=== PATIENT | male | born 1985 | race Caucasian/White ===

== ENCOUNTER 2021-04-12 08:16 | Emergency (ER) | payer SELFPAY ==
[2021-04-12 09:41] LABS: RED BLOOD COUNT 4.93 M/UL (4.20-5.50); WHITE BLOOD COUNT 9.9 K/UL (4.5-11.0)
[2021-04-12 10:05] LABS: BUN/CREATININE RATIO 11 (0-10)
== END 2021-04-12 13:36 | disposition home or self-care (01) ==
LOC: ER1 08:16
PROVIDERS: Physician Assistant
DX: N13.2 Hydronephrosis with renal and ureteral calculous obstruction (principal); F17.200 Nicotine dependence, unspecified, uncomplicated
CPT/HCPCS: 80053; 85025; 96372; 99284; J1885